=== PATIENT | female | born 1980 | race Caucasian/White ===

== ENCOUNTER 2017-01-11 02:10 | Inpatient (IN) ==
[2017-01-11] MEDS ORDERED: PEPCID IV PRN (02:24)
[2017-01-11] MEDS ORDERED: ZOFRAN IV PRN (02:24)
[2017-01-11] MEDS ORDERED: PEPCID PO PRN (02:24)
[2017-01-11] MEDS ORDERED: TYLENOL PO PRN (02:24)
[2017-01-11] MEDS ORDERED: REGLAN PO ONE (02:24)
[2017-01-11] MEDS ORDERED: PITOCIN 30 UNITS/LR 500 ML IV SCH (02:30)
[2017-01-11] MEDS ORDERED: SODIUM CHLORIDE 0.9% INJ SCH (02:30)
[2017-01-11] MEDS: LR 1,000 ML IV SCH ×2 (03:00→07:45)
[2017-01-11] MEDS: STADOL IV PRN ×3 (03:12→07:28)
[2017-01-11 03:17] LABS: URINE SOURCE VOIDED
[2017-01-11 03:19] LABS: BILIRUBIN URINE NEGATIVE (NEGATIVE); BLOOD URINE 1+ (NEGATIVE); CLARITY CLEAR (CLEAR); COLOR YELLOW; GLUCOSE URINE NEGATIVE (NEGATIVE); LEUKOCYTES URINE 2+ (NEGATIVE); NITRITE URINE POSITIVE (NEGATIVE); PROTEIN URINE TRACE mg/dL (NEGATIVE); UROBILINOGEN URINE 1+(1 mg/dL)
[2017-01-11 03:35] LABS: BASO% 0.1 % (0.0-0.8); EOS# 0.08 X1000 (0.0-0.7); EOS% 0.4 % (0.0-10.0); HEMATOCRIT 35.5 % (37.0-47.0); HEMOGLOBIN 12.3 g/dL (12.0-16.0); IMM GRAN# 0.15 X1000 (0.0-0.04); IMM GRAN% 0.7 % (0.0-0.5); LYMPH# 1.35 X1000 (1.2-3.4); LYMPH% 6.7 % (20.5-51.1); MCH 30.8 PG (27-31); MCHC 34.6 g/dL (33-37); MONO# 1.76 X1000 (0.11-0.59); MONO% 8.7 % (1.7-9.3); MPV 11.3 FL (7.4-10.4); NEUT% 83.4 % (42.2-75.2); PLT 190 X1000 (130-400); RBC 3.99 XMIL (4.2-5.4)
[2017-01-11 03:44] LABS: BANDS 7 % (0-1); MANUAL DIFF NEEDED? YES
[2017-01-11 03:45] LABS: LYMPHS 7 % (21-51); MONO 7 % (1-9)
[2017-01-11] MEDS ORDERED: FENTANYL-BUPIV-NS 2 MCG-0.1% 200 ML EPIDURAL PRN (07:21)
[2017-01-11] MEDS ORDERED: MARCAINE 0.25% PF ONE (07:41)
[2017-01-11] MEDS ORDERED: MINERAL OIL ONE (07:42)
[2017-01-11] MEDS ORDERED: XYLOCAINE-MPF 1% ONE (07:42)
[2017-01-11] MEDS ORDERED: MARCAINE 0.25% PF INJ ONE (08:22)
[2017-01-11] MEDS ORDERED: NESACAINE-MPF 3% ONE (11:09)
[2017-01-11] MEDS ORDERED: FENTANYL ONE (11:10)
[2017-01-11] MEDS ORDERED: M-M-R II VACCINE SUBQ ONE (13:05)
[2017-01-11] MEDS ORDERED: AMBIEN PO PRN (13:05)
[2017-01-11] MEDS ORDERED: CYTOTEC PO PRN (13:05)
[2017-01-11] MEDS ORDERED: HYDROXYZINE PO PRN (13:05)
[2017-01-11] MEDS ORDERED: BOOSTRIX VACCINE IM ONE (13:05)
[2017-01-11] MEDS ORDERED: PITOCIN 30 UNITS/LR 500 ML IV ONE (13:05)
[2017-01-11] MEDS ORDERED: PITOCIN IM PRN (13:05)
[2017-01-11] MEDS ORDERED: PERCOCET-10 PO PRN (13:05)
[2017-01-11] MEDS ORDERED: MINERAL OIL MISC PRN (13:05)
[2017-01-11] MEDS ORDERED: XYLOCAINE-MPF 1% INJ PRN (13:05)
[2017-01-11] MEDS ORDERED: HYDROXYZINE IM PRN (13:05)
[2017-01-11] MEDS ORDERED: BENADRYL PO PRN (13:05)
[2017-01-11] MEDS ORDERED: NORCO-5 PO PRN (13:05)
[2017-01-11] MEDS ORDERED: PERCOCET-5 PO PRN (13:05)
[2017-01-11] MEDS ORDERED: PERI MEDS (DERMOPLAST/NUPERCAINAL/TUCKS) MISC PRN (13:05)
[2017-01-11] MEDS ORDERED: BENADRYL IV PRN (13:05)
[2017-01-11] MEDS ORDERED: PITOCIN 20 UNITS/LR 1,000 ML IV SCH (13:15)
[2017-01-11] MEDS ORDERED: PITOCIN 20 UNITS/LR 1,000 ML ONE (13:42)
[2017-01-11] MEDS: MOTRIN PO PRN (15:46)
[2017-01-11] MEDS: NORCO-10 PO PRN ×2 (15:47→21:19)
[2017-01-11] MEDS ORDERED: ROCEPHIN 1 GM/NS 50 ML IV ONE (16:22)
[2017-01-11] MEDS ORDERED: NS 500 ML IV SCH (16:45)
[2017-01-11] MEDS: PERICOLACE PO SCH (20:15)
[2017-01-12] MEDS: MOTRIN PO PRN ×2 (05:53→18:27)
[2017-01-12 06:31] LABS: MANUAL DIFF NEEDED? NO
[2017-01-12 06:50] LABS: BASO% 0.2 % (0.0-0.8); EOS# 0.09 X1000 (0.0-0.7); EOS% 0.6 % (0.0-10.0); HEMATOCRIT 33.5 % (37.0-47.0); HEMOGLOBIN 11.1 g/dL (12.0-16.0); IMM GRAN# 0.11 X1000 (0.0-0.04); IMM GRAN% 0.7 % (0.0-0.5); LYMPH# 1.79 X1000 (1.2-3.4); MCH 29.9 PG (27-31); MCHC 33.1 g/dL (33-37); MCV 90.3 FL (81-99); MONO# 1.67 X1000 (0.11-0.59); MONO% 10.3 % (1.7-9.3); MPV 11.8 FL (7.4-10.4); NEUT% 77.2 % (42.2-75.2); PLT 167 X1000 (130-400); RBC 3.71 XMIL (4.2-5.4)
[2017-01-12] MEDS: NORCO-10 PO PRN ×3 (10:04→23:29)
[2017-01-12] MEDS: PERICOLACE PO SCH (21:29)
[2017-01-12 23:27] VITALS: BP 111/56
== END 2017-01-13 12:05 | disposition home or self-care (01) ==
LOC: P.LD 02:10
PROVIDERS: ADMIT Obstetrics & Gynecology; ATTEND Obstetrics & Gynecology